=== PATIENT | female | born 1990 | race Caucasian/White ===

== ENCOUNTER 2018-07-18 10:17 | Emergency (ER) | payer BC ==
--- OUTSIDE RECORDS SUMMARY | 2018-07-18 10:37 | XMS REPORT | Continuity of Care Document ---
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 Primary Care Physician Unavailable Payers Type Date Identification Numbers Payment Provider Subscriber Effective: 2018 Policy Number: [id number] /BS Of ALBERT Carolyn Ruiz PayID: [id number] [address] [address] [place] [address] Advance Directives Description No Information Available Problems Date Description Provider Status Onset: 11/25/2015 Allergic rhinitis due to pollen Humphrey Dobbins M.D. Active Onset: 11/25/2015 Mild persistent asthma Humphrey Dobbins M.D. Active Onset: 11/25/2015 Bacterial infection, unspecified Humphrey Dobbins M.D. Active Onset: 01/06/2016 Body mass index 40+ - severely obese Humphrey Dobbins M.D. Active Onset: 01/06/2016 Contact dermatitis Humphrey Dobbins M.D. Active Onset: 03/09/2016 Immunization Humphrey Dobbins M.D. Active Onset: 04/13/2016 Body mass index 30+ - obesity Humphrey Dobbins M.D. Active Onset: 04/13/2016 Allergic rhinitis Humphrey Dobbins M.D. Active Onset: 11/16/2016 Asthma without status asthmaticus Randall JuneD. 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 Hobbies Fishing Hobbies Hiking Hobbies Horseback Riding Hobbies Knitting Hobbies Music Hobbies Reading Hobbies Bowling Hobbies Softball Tobacco Use Start: Unknown Never Smoked Cigarettes Tobacco Use Start: Unknown Never Smoked Cigars Tobacco Use Start: Unknown Never Smoked A Pipe Smoking Status Reviewed: 11/16/16 Never Smoked A Pipe Tobacco Use Start: Unknown Never Used Smokeless Tobacco ETOH Use rarely have a glass of wine Tobacco Use Start: Unknown Patient has never smoked Recreational Drug Use Never Used Drugs Father's Occupation [place] Mother's Occupation teacher Parental Marital Status Parents Parental Involvement Mother and father are very involved Allergies, Adverse Reactions, Alerts Date Description Reaction Status Severity Comments 11/25/2015 Septra Urticaria Active Medications Medication Date Status Form Strength Qnty SIG Indications Ordering Provider Augmentin Active Tablets 875-125mg 20tabs take 1 by J30.1 Ewa 018 mouth Uldrich, twice a 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 Jessica t may fill SCOW DERRICK OPERATOR-C with mylan generic. Topiramate Active Tablets 100mg once a Unknown 000 day Clonazepam Active Tablets 0.5mg as needed Unknown 000 Dispers Sumatriptan Active Tablets 50mg once a Unknown Succinate 000 day Ventolin HFA Active Aerosol 108(90Base 18gm 2 every 4 Ewa 000 ) mcg/Act hours as Uldrich, needed [employer]ERR[employer]PER[employer]-C Mirena (52 MG) Active IUD 20mcg/24HR Unknown 000 Fluoxetine HCL Active Capsules 40mg Once Unknown 000 daily Trazodone HCL Active Tablets 50mg Once Unknown 000 daily at bedtime Caryn Active Tablets 180mg 1 by Unknown Allergy 000 mouth every day Medications Administered in Office Medication Date Status Form Strength Qnty SIG Indications Ordering Provider Injection 06/13/20 Administered Injection Allergy 18 Injection Injection 05/20/20 Administered Injection Allergy 18 Injection Injection 05/06/20 Administered Injection Allergy 18 Injection Injection 04/21/20 Administered Injection Allergy 18 Injection Injection 04/08/20 Administered Injection Allergy 18 Injection Injection 03/23/20 Administered Injection Allergy 18 Injection Injection 03/09/20 Administered Injection Allergy 18 Injection Injection 02/24/20 Administered Injection Allergy 18 Injection Injection 02/10/20 Administered Injection Allergy 18 Injection Injection 01/27/20 Administered Injection Allergy 18 Injection Injection 01/13/20 Administered Injection Allergy 18 Injection Injection 12/30/19 Administered Injection Allergy 18 Injection Injection 12/16/19 Administered Injection Allergy 18 Injection Injection 12/02/19 Administered Injection Allergy 18 Injection Injection 11/18/19 Administered Injection Allergy 18 Injection Injection 10/28/19 Administered Injection Allergy 18 Injection Injection 10/14/19 Administered Injection Allergy 18 Injection Injection 10/01/19 Administered Injection Allergy 18 Injection Injection 09/17/19 Administered Injection Allergy 18 Injection Injection 09/01/19 Administered Injection Allergy 18 Injection Injection 08/18/19 Administered Injection Allergy 18 Injection Injection 08/04/19 Administered Injection Allergy 18 Injection Injection 07/21/19 Administered Injection Allergy 18 Injection Injection 07/07/20 Administered Injection Allergy 17 Injection Injection 06/23/20 Administered Injection Allergy 17 Injection Injection 06/16/20 Administered Injection Allergy 17 Injection Injection 20 Administered Injection Allergy 17 Injection Injection 05/19/20 Administered Injection Allergy 17 Injection Injection 05/12/20 Administered Injection Allergy 17 Injection Injection 05/06/20 Administered Injection Allergy 17 Injection Injection 04/28/20 Administered Injection Allergy 17 Injection Injection 04/21/20 Administered Injection Allergy 17 Injection Injection 04/14/20 Administered Injection Allergy 17 Injection Injection 04/07/20 Administered Injection Allergy 17 Injection Injection 03/31/20 Administered Injection Allergy 17 Injection Injection 03/24/20 Administered Injection Allergy 17 Injection Injection 03/17/20 Administered Injection Allergy 17 Injection Injection 03/10/20 Administered Injection Humphrey Dobbins, 17 M.D. Injection 03/10/20 Administered Injection Allergy 17 Injection Injection 03/03/20 Administered Injection Humphrey Dobbins, 17 M.D. Injection 03/03/20 Administered Injection Allergy 17 Injection Injection 02/25/20 Administered Injection Allergy 17 Injection Injection 02/16/20 Administered Injection Allergy 17 Injection Injection 02/11/20 Administered Injection Allergy 17 Injection Injection 02/04/20 Administered Injection Allergy 17 Injection Injection 01/28/20 Administered Injection Allergy 17 Injection Injection 01/21/20 Administered Injection Allergy 17 Injection Injection 01/14/20 Administered Injection Allergy 17 Injection Injection 01/07/20 Administered Injection Allergy 17 Injection Injection 12/31/19 Administered Injection Allergy 17 Injection Injection 12/24/19 Administered Injection Humphrey Dobbins, 17 M.D. Injection 12/24/19 Administered Injection Allergy 17 Injection Injection 12/17/19 Administered Injection Humphrey Dobbins, 17 M.D. Injection 12/17/19 Administered Injection Allergy 17 Injection Injection 12/10/19 Administered Injection Allergy 17 Injection Injection 0520 Administered Injection Allergy 17 Injection Injection 05 Administered Injection Allergy 17 Injection Injection 05 Administered Injection Allergy 17 Injection Injection 11/12/19 Administered Injection Allergy 17 Injection Injection 20 Administered Injection Allergy 17 Injection Injection 10/27/19 Administered Injection Allergy 17 Injection Injection 10/20/19 Administered Injection Allergy 17 Injection Injection 10/13/19 Administered Injection Allergy 17 Injection Injection 10/08/19 Administered Injection Allergy 17 Injection Injection 09/29/19 Administered Injection Allergy 17 Injection Injection 09/24/19 Administered Injection Allergy 17 Injection Injection 09/14/19 Administered Injection Allergy 17 Injection Injection 09/07/19 Administered Injection Allergy 17 Injection Injection 09/02/19 Administered Injection Allergy 17 Injection Injection 08/26/19 Administered Injection Allergy 17 Injection Injection 08/19/19 Administered Injection Allergy 17 Injection Injection 08/12/19 Administered Injection Allergy 17 Injection Injection 07/29/19 Administered Injection Allergy 17 Injection Injection 07/22/19 Administered Injection Allergy 17 Injection Injection 07/15/20 Administered Injection Allergy 16 Injection Injection 07/10/20 Administered Injection Allergy 16 Injection Injection 07/02/20 Administered Injection Allergy 16 Injection Injection 06/24/20 Administered Injection Allergy 16 Injection Injection 06/17/20 Administered Injection Allergy 16 Injection Injection 06/10/20 Administered Injection Allergy 16 Injection Injection 06/04/20 Administered Injection Allergy 16 Injection Injection 05/28/20 Administered Injection Allergy 16 Injection Injection 05/14/20 Administered Injection Allergy 16 Injection Injection 05/07/20 Administered Injection Allergy 16 Injection Injection 05/01/20 Administered Injection Allergy 16 Injection Injection 04/23/20 Administered Injection Allergy 16 Injection Injection 04/13/20 Administered Injection Allergy 16 Injection Injection 04/08/20 Administered Injection Allergy 16 Injection Injection 04/01/20 Administered Injection Allergy 16 Injection Injection 03/25/20 Administered Injection Allergy 16 Injection Injection 03/16/20 Administered Injection Allergy 16 Injection Injection 01/17/20 Administered Injection Allergy 16 Injection Immunizations CPT Code Status Date Vaccine Lot # [id number] Given Unknown Pneumococcal Vaccine 03452 Given Unknown Influenza Vaccine 11443 Given Unknown Influenza Vaccine Vital Signs Date Vital Result Comment 07/04/2018 1:19pm Height 63 inches 5'3" Weight 228.00 lb Weight 103.421 kg Respiratory Rate 18 /min Heart Rate 90 /min Body Temperature 97.8 F O2 % BldC Oximetry 98 % BP Systolic 112 mmHg BP Diastolic 64 mmHg Asthma Control Test 7 BMI (Body Mass Index) 40.4 kg/m2 06/29/2018 2:53pm Height 63 inches 5'3" Weight 228.00 lb Weight 103.421 kg Respiratory Rate 20 /min Heart Rate 84 /min Body Temperature 97.6 F O2 % BldC Oximetry 98 % BP Systolic 105 mmHg BP Diastolic 52 mmHg Asthma Control Test 14 BMI (Body Mass Index) 40.4 kg/m2 04/21/2018 3:33pm Height 63 inches 5'3" Weight 225.00 lb Weight 102.060 kg Respiratory Rate 20 /min Heart Rate 73 /min O2 % BldC Oximetry 98 % BP Systolic 105 mmHg BP Diastolic 61 mmHg Asthma Control Test 17 BMI (Body Mass Index) 39.9 kg/m2 10/18/2017 10:28am Height 63 inches 5'3" Weight 228.00 lb Weight 103.421 kg Respiratory Rate 16 /min Heart Rate 82 /min O2 % BldC Oximetry 98 % BP Systolic 95 mmHg BP Diastolic 55 mmHg Asthma Control Test 20 BMI (Body Mass Index) 40.4 kg/m2 04/02/2017 4:22pm Height 63 inches 5'3" Weight 234.00 lb Weight 106.142 kg Respiratory Rate 16 /min Heart Rate 74 /min O2 % BldC Oximetry 98 % BP Systolic 93 mmHg BP Diastolic 54 mmHg Asthma Control Test 19 BMI (Body Mass Index) 41.4 kg/m2 01/04/2017 5:03pm Height 63 inches 5'3" Weight 228.00 lb Weight 103.421 kg Respiratory Rate 20 /min Heart Rate 70 /min O2 % BldC Oximetry 99 % BP Systolic 99 mmHg BP Diastolic 50 mmHg Asthma Control Test 23 BMI (Body Mass Index) 40.4 kg/m2 11/16/2016 11:17am Height 63 inches 5'3" Weight 228.00 lb Weight 103.421 kg Respiratory Rate 16 /min Heart Rate 92 /min O2 % BldC Oximetry 98 % BP Systolic 105 mmHg BP Diastolic 56 mmHg Asthma Control Test 20 BMI (Body Mass Index) 40.4 kg/m2 04/13/2016 11:04am Height 63 inches 5'3" Weight 220.00 lb per patient Weight 99.792 kg Respiratory Rate 20 /min Heart Rate 71 /min O2 % BldC Oximetry 98 % BP Systolic 100 mmHg BP Diastolic 57 mmHg Asthma Control Test 21 BMI (Body Mass Index) 39.0 kg/m2 03/09/2016 5:17pm Height 63 inches 5'3" Weight 230.00 lb Patient stated Weight 104.328 kg Respiratory Rate 20 /min Heart Rate 72 /min O2 % BldC Oximetry 98 % BP Systolic 85 mmHg BP Diastolic 43 mmHg Asthma Control Test 14 BMI (Body Mass Index) 40.7 kg/m2 01/23/2016 9:09am Height 63 inches 5'3" Weight 232.00 lb Weight 105.235 kg Respiratory Rate 16 /min Heart Rate 75 /min O2 % BldC Oximetry 98 % Asthma Control Test 11 BMI (Body Mass Index) 41.1 kg/m2 01/06/2016 11:32am Height 63 inches 5'3" Weight 231.00 lb Weight 104.782 kg Respiratory Rate 18 /min Heart Rate 90 /min O2 % BldC Oximetry 98 % BP Systolic 106 mmHg BP Diastolic 60 mmHg Asthma Control Test 11 BMI (Body Mass Index) 40.9 kg/m2 11/25/2015 9:10am Height 63 inches 5'3" Weight 232.00 lb Weight 105.235 kg Respiratory Rate 16 /min Heart Rate 86 /min O2 % BldC Oximetry 98 % BP Systolic 105 mmHg BP Diastolic 61 mmHg BMI (Body Mass Index) 41.1 kg/m2 Results Test Date Facility Test Result H/L Range Note S.Pneumoniae 12/27/2015 [facility] S. pneumoniae 7.9 g/mL N >=2.3 Igg AB [address] Type 1 [place] [address] [phone] S. pneumoniae Type 2 IgG AB 1.2 g/mL N >=1.0 S. pneumoniae Type 3 IgG AB 1.3 g/mL N >=1.8 S. pneumoniae Type 4 IgG AB 1.3 g/mL N >=0.6 S. pneumoniae Type 5 IgG AB 125.8 g/mL N >=10.7 S. pneumoniae Type 8 IgG AB 1.0 g/mL N >=2.9 S. pneumoniae Type 9N IgG AB 1.1 g/mL N >=9.2 S. pneumoniae Type 12F IgG AB <0.1 g/mL N >=0.6 S. pneumoniae Type 14 IgG AB 32.9 g/mL N >=7.0 S. pneumoniae Type 17F IgG AB 1.7 g/mL N >=7.8 S. pneumoniae Type 19F IgG AB 11.7 g/mL N >=15.0 S. pneumoniae Type 20 IgG AB 0.4 g/mL N >=1.3 S. pneumoniae Type 22F IgG AB 5.2 g/mL N >=7.2 S. pneumoniae Type 23F IgG AB 12.9 g/mL N >=8.0 S. pneumoniae Type 6B IgG AB 97.3 g/mL N >=4.7 S. pneumoniae Type 10A IgG AB 1.7 g/mL N >=2.9 S. pneumoniae Type 11A IgG AB 1.5 g/mL N >=2.4 S. pneumoniae Type 7F IgG AB 6.1 g/mL N >=3.2 S. pneumoniae Type 15B IgG AB 1.3 g/mL N >=3.3 S. pneumoniae Type 18C IgG AB 5.6 g/mL N >=3.3 S. pneumoniae Type 19A IgG AB 448.6 g/mL N >=17.1 S. pneumoniae Type 9V IgG AB 4.2 g/mL N >=2.6 S. pneumoniae Type 33F IgG AB 1.8 g/mL N >=1.7 1 Immunoglobulins 11/25/2015 [facility] Immunoglobulin G 1390 N 767 - 2 Serum Quant [address] mg/dL 1590 [place] [address] [phone] Immunoglobulin M 115 mg/dL N 37 - 286 Immunoglobulin A 137 mg/dL N 61 - 356 S.Pneumoniae Igg 11/25/2015 [facility] S. pneumoniae 1.0 g/mL N >=2.3 AB [address] Type [place] [address] [phone] S. pneumoniae Type 2 IgG AB 0.9 g/mL N >=1.0 S. pneumoniae Type 3 IgG AB 0.5 g/mL N >=1.8 S. pneumoniae Type 4 IgG AB 0.2 g/mL N >=0.6 S. pneumoniae Type 5 IgG AB 2.3 g/mL N >=10.7 S. pneumoniae Type 8 IgG AB 0.5 g/mL N >=2.9 S. pneumoniae Type 9N IgG AB 0.6 g/mL N >=9.2 S. pneumoniae Type 12F IgG AB <0.1 g/mL N >=0.6 S. pneumoniae Type 14 IgG AB <0.7 g/mL N >=7.0 S. pneumoniae Type 17F IgG AB <0.9 g/mL N >=7.8 S. pneumoniae Type 19F IgG AB 1.8 g/mL N >=15.0 S. pneumoniae Type 20 IgG AB 0.3 g/mL N >=1.3 S. pneumoniae Type 22F IgG AB 3.1 g/mL N >=7.2 S. pneumoniae Type 23F IgG AB 3.0 g/mL N >=8.0 S. pneumoniae Type 6B IgG AB 1.2 g/mL N >=4.7 S. pneumoniae Type 10A IgG AB 1.1 g/mL N >=2.9 S. pneumoniae Type 11A IgG AB 1.0 g/mL N >=2.4 S. pneumoniae Type 7F IgG AB 1.7 g/mL N >=3.2 S. pneumoniae Type 15B IgG AB 0.8 g/mL N >=3.3 S. pneumoniae Type 18C IgG AB 0.3 g/mL N >=3.3 S. pneumoniae Type 19A IgG AB 40.7 g/mL N >=17.1 S. pneumoniae Type 9V IgG AB 1.9 g/mL N >=2.6 S. pneumoniae Type 33F IgG AB 1.5 g/mL N >=1.7 3 CBC Auto Diff 11/25/2015 [facility] White Blood 9.8 10^3/uL N 3.5-10.[address] Count [place], [place] [id number] [phone] Red Blood Count 4.40 10^6/uL N 4.0-5.4 Hemoglobin 12.5 g/dL N 12.0-16.0 Hematocrit 39 % N 35-47 Mean Corpuscular Volume 88 fL N 80-97 Mean Corpuscular Hemoglobin 28 pg N 27-31 Mean Corpuscular HGB Conc 32 g/dL N 31-36 Red Cell Distribution Width 15 % N 10.5-15 Platelet Count 241 10^3/uL N 150-450 Mean Platelet Volume 9 um3 N 7.4-10.4 Abs Neutrophils 6.6 10^3/uL N 1.5-7.7 Abs Lymphocytes 2.7 10^3/uL N 1.0-4.8 Abs Monocytes 0.4 10^3/uL N 0-0.8 Abs Eosinophils 0.1 10^3/uL N 0-0.6 Abs Basophils 0.1 10^3/uL N 0-0.2 Abs Nucleated RBC 0.02 10^3/uL N Granulocyte % 67.2 % N 38-83 Lymphocyte % 27.4 % N 25-47 Monocyte % 3.6 % N 1-9 Eosinophil % 1.3 % N 0-6 Basophil % 0.5 % N 0-2 Nucleated Red Blood Cells % 0.2 N 1 Either of the two following conditions would be consistent with a normal response to Streptococcus pneumoniae vaccination: Antibody concentrations greater than or equal to the reference value for at least 50% of serotypes in either a pre- or post-vaccination sample. Antibody concentrations increased by 2-fold or greater for at least 50% of serotypes when comparing the pre- to the post-vaccination results. Optimal cut-offs (reference values) were derived by measuring serotype-specific IgG antibody levels in an adult cohort of 100 healthy individuals (previously unvaccinated) before and after pneumococcal vaccination and identifying the antibody level for each serotype that included the largest number of individuals with a negative response (below cut-off) pre-vaccination and a positive response (above cut-off) post-vaccination. ADDITIONAL INFORMATION All 23 serotypes assessed by this assay are included in the Pneumovax 23 vaccine. IgG antibody concentrations following Pneumovax 23 administration are a reflection of an individual's humoral immune response to polysaccharide antigens. Serotypes 1, 3, 4, 5, 6A (6), 14, 19F (19), 23F (23), 6B (26), 7F (51), 18C (56), 19A (57) and 9V (68) are included in the Prevnar-13 conjugate vaccine. Antibody concentrations following Prevnar-13 administration are a reflection of an individual's response to protein-conjugated antigens. Serotypes 2, 8, 9N (9), 12F (12), 17F (17), 20, 22F (22), 10A (34), 11A (43), 15B (54) and 33F (70) are present only in the Pneumovax 23 vaccine and not in Prevnar-13. Responses to these 11 serotypes are a reflection of an individual's response to polysaccharide antigens. Serotype 6A is only present in Prevnar-13. Test Performed by: [place] [address] Packaging Line Operator: Ubaldo Leon II, M.D., Ph.D. 2 Test Performed by: [place] [address] Packaging Line Operator: Ubaldo Leon II, M.D., Ph.D. 3 Either of the two following conditions would be consistent with a normal response to Streptococcus pneumoniae vaccination: Antibody concentrations greater than or equal to the reference value for at least 50% of serotypes in either a pre- or post-vaccination sample. Antibody concentrations increased by 2-fold or greater for at least 50% of serotypes when comparing the pre- to the post-vaccination results. Optimal cut-offs (reference values) were derived by measuring serotype-specific IgG antibody levels in an adult cohort of 100 healthy individuals (previously unvaccinated) before and after pneumococcal vaccination and identifying the antibody level for each serotype that included the largest number of individuals with a negative response (below cut-off) pre-vaccination and a positive response (above cut-off) post-vaccination. ADDITIONAL INFORMATION All 23 serotypes assessed by this assay are included in the Pneumovax 23 vaccine. IgG antibody concentrations following Pneumovax 23 administration are a reflection of an individual's humoral immune response to polysaccharide antigens. Serotypes 1, 3, 4, 5, 6A (6), 14, 19F (19), 23F (23), 6B (26), 7F (51), 18C (56), 19A (57) and 9V (68) are included in the Prevnar-13 conjugate vaccine. Antibody concentrations following Prevnar-13 administration are a reflection of an individual's response to protein-conjugated antigens. Serotypes 2, 8, 9N (9), 12F (12), 17F (17), 20, 22F (22), 10A (34), 11A (43), 15B (54) and 33F (70) are present only in the Pneumovax 23 vaccine and not in Prevnar-13. Responses to these 11 serotypes are a reflection of an individual's response to polysaccharide antigens. Serotype 6A is only present in Prevnar-13. Test Performed by: [address] [address] Packaging Line Operator: Ubaldo Leon II, M.D., Ph.D. Procedures Date Code Description Status 07/04/2018 88412 Ippb Completed 06/13/2018 98468 Injection Completed 05/20/2018 54870 Injection Completed 05/06/2018 32210 Injection Completed 04/21/2018 48209 Injection Completed 04/21/2018 29766 Pre PFT Completed 04/08/2018 85508 Injection Completed 03/23/2018 05332 Injection Completed 03/09/2018 24277 Injection Completed 02/23/2018 28667 Extract 1-10 Completed 02/23/2018 73497 Injection Completed 02/09/2018 74994 Injection Completed 01/26/2018 06289 Injection Completed 01/12/2018 78523 Injection Completed 12/29/2017 90098 Injection Completed 12/15/2017 28774 Injection Completed 12/01/2017 26592 Injection Completed 11/17/2017 83763 Injection Completed 10/27/2017 00635 Injection Completed 10/18/2017 03835 Pre PFT Completed 10/13/2017 09703 Injection Completed 09/30/2017 57167 Extract 1-10 Completed 09/30/2017 13493 Injection Completed 09/16/2017 97419 Injection Completed 09/01/2017 29909 Injection Completed 08/18/2017 11080 Injection Completed 08/04/2017 35279 Injection Completed 07/21/2017 55593 Injection Completed 07/07/2017 22510 Injection Completed 06/23/2017 52662 Injection Completed 06/16/2017 82692 Injection Completed 06/02/2017 67986 Injection Completed 05/19/2017 75763 Extract 1-10 Completed 05/19/2017 32583 Injection Completed 05/12/2017 14485 Injection Completed 05/06/2017 68416 Injection Completed 04/28/2017 20684 Injection Completed 04/21/2017 49842 Injection Completed 04/14/2017 87391 Injection Completed 04/07/2017 35984 Injection Completed 04/02/2017 63097 Pre PFT Completed 03/31/2017 62655 Injection Completed 03/24/2017 69293 Injection Completed 03/17/2017 36878 Injection Completed 03/10/2017 94624 Extract 1-10 Completed 03/10/2017 79519 Injection Completed 03/10/2017 84870 Injection Completed 03/03/2017 44163 Injection Completed 03/03/2017 91324 Injection Completed 02/24/2017 50425 Injection Completed 02/15/2017 25118 Injection Completed 02/10/2017 66939 Injection Completed 02/03/2017 76424 Injection Completed 01/27/2017 14837 Injection Completed 01/20/2017 66820 Injection Completed 01/13/2017 65370 Injection Completed 01/06/2017 86463 Injection Completed 01/04/2017 91925 Pre PFT Completed 12/30/2016 04703 Extract 1-10 Completed 12/30/2016 81508 Injection Completed 12/23/2016 72824 Injection Completed 12/23/2016 92437 Injection Completed 12/16/2016 01787 Injection Completed 12/16/2016 16663 Injection Completed 12/09/2016 04603 Injection Completed 12/02/2016 37386 Injection Completed 11/25/2016 08626 Injection Completed 11/16/2016 63502 Injection Completed 11/16/2016 99533 Pre PFT Completed 11/11/2016 97354 Injection Completed 11/04/2016 43138 Injection Completed 10/26/2016 86827 Injection Completed 10/19/2016 00136 Extract 1-10 Completed 10/19/2016 62453 Extract 1-10 Completed 10/19/2016 29438 Injection Completed 10/12/2016 63618 Injection Completed 10/07/2016 32675 Injection Completed 09/28/2016 39963 Injection Completed 09/23/2016 78205 Injection Completed 09/14/2016 10339 Injection Completed 09/07/2016 61634 Injection Completed 09/02/2016 01957 Injection Completed 08/26/2016 62199 Injection Completed 08/19/2016 82740 Injection Completed 08/12/2016 55493 Extract 1-10 Completed 08/12/2016 68589 Injection Completed 07/29/2016 63387 Injection Completed 07/22/2016 83838 Injection Completed 07/15/2016 26925 Injection Completed 07/10/2016 30399 Injection Completed 07/02/2016 57291 Injection Completed 06/24/2016 25989 Injection Completed 06/17/2016 40290 Injection Completed 06/10/2016 25485 Injection Completed 06/04/2016 17336 Injection Completed 05/28/2016 35643 Extract 1-10 Completed 05/28/2016 32568 Injection Completed 05/14/2016 81685 Injection Completed 05/07/2016 22097 Injection Completed 05/01/2016 35257 Injection Completed 04/23/2016 65700 Injection Completed 04/13/2016 99270 Injection Completed 04/13/2016 45717 Pre PFT Completed 04/08/2016 56917 Injection Completed 04/01/2016 45975 Injection Completed 03/25/2016 61993 Injection Completed 03/16/2016 86588 Injection Completed 01/17/2016 78038 Injection Completed 01/13/2016 60074 Extract 1-10 Completed 11/25/2015 42551 Skin Test Scratch # Of Units ____ Completed 11/25/2015 06358 Pulmonary Function Test Completed Encounters Type Date Location Provider Dx Diagnosis Office Visit 07/04/2018 Danay Lopez J30.1 Allergic rhinitis due 1:20p [employer] to pollen J30.81 Allergic rhinitis due to animal (cat) (dog) hair and dander J30.2 Other seasonal allergic rhinitis J30.89 Other allergic rhinitis J45.21 Mild intermittent asthma with (acute) exacerbation Office Visit 06/29/2018 2:40p [facility] Ewa Lopez J30.1 Allergic [employer] rhinitis due to pollen J30.81 Allergic rhinitis due to animal (cat) (dog) hair and dander J30.2 Other seasonal allergic rhinitis J30.89 Other allergic rhinitis J45.30 Mild persistent asthma, uncomplicated Office Visit 04/21/2018 3:40p Tyson Rick30.81 Allergic rhinitis [employer] due to animal (cat) (dog) hair and dander J30.89 Other allergic rhinitis J30.1 Allergic rhinitis due to pollen J45.30 Mild persistent asthma, uncomplicated J30.2 Other seasonal allergic rhinitis J01.90 Acute sinusitis, unspecified Office Visit 10/18/2017 10:20a Danay Lopez Z23 Encounter for [employer] immunization J30.1 Allergic rhinitis due to pollen J30.2 Other seasonal allergic rhinitis J30.89 Other allergic rhinitis J45.30 Mild persistent asthma, uncomplicated Office Visit 04/02/2017 4:20p Danay Dobbins M.D. J30.1 Allergic rhinitis due to pollen J45.30 Mild persistent asthma, uncomplicated Office Visit 01/04/2017 5:00p Danay Dobbins M.D. J30.1 Allergic rhinitis due to pollen J45.30 Mild persistent asthma, uncomplicated Z23 Encounter for immunization Z68.41 Body mass index (BMI) 40.0-44.9, adult Office Visit 11/16/2016 11:20a Danay Dobbins M.D. J45.998 Other asthma J30.2 Other seasonal allergic rhinitis J45.998 Other asthma Z23 Encounter for immunization Z68.41 Body mass index (BMI) 40.0-44.9, adult Office Visit 04/13/2016 11:00a Danay Dobbins M.D. J30.2 Other seasonal allergic rhinitis J45.30 Mild persistent asthma, uncomplicated Z68.39 Body mass index (BMI) 39.0-39.9, adult Office Visit 03/09/2016 5:20p Danay Dobbins M.D. J30.1 Allergic rhinitis due to pollen J45.30 Mild persistent asthma, uncomplicated Z23 Encounter for immunization Z68.41 Body mass index (BMI) 40.0-44.9, adult Office Visit 01/23/2016 9:00a [place] Mercedes Chan, Z68.41 Body mass index (BMI) RPA-C 40.0-44.9, adult Z23 Encounter for immunization T78.09xD Anaphylactic reaction due to oth food products, subs encntr J30.1 Allergic rhinitis due to pollen J30.2 Other seasonal allergic rhinitis J30.81 Allergic rhinitis due to animal (cat) (dog) hair and dander J30.89 Other allergic rhinitis J45.30 Mild persistent asthma, uncomplicated Office Visit 01/06/2016 11:20a Danay Dobbins M.D. J30.1 Allergic rhinitis due to pollen J45.30 Mild persistent asthma, uncomplicated L23.9 Allergic contact dermatitis, unspecified cause Z68.41 Body mass index (BMI) 40.0-44.9, adult Office Visit 11/25/2015 9:00a Danay Dobbins M.D. J30.1 Allergic rhinitis due to pollen J45.30 Mild persistent asthma, uncomplicated A49.9 Bacterial infection, unspecified Plan of Treatment Future Appointment(s):07/08/2018 3:00 pm - Allergy Injection at [id number] 3:40 pm - [facility] at St[facility]w4207/04/2018 - MARLIN Judge-CJ30.1 Allergic rhinitis due to cwhgkqL14.81 Allergic rhinitis due to animal (cat) (dog) hair and mnuzsnK06.2 Other seasonal allergic kntmnzgxD03.89 Other allergic oamoikmcJ43.21 Mild intermittent asthma with (acute) exacerbationNew Medication:Augmentin 875-125 mgRecommendations:Continue all medications as prescribed.Refrain from wearing perfumes/scented colognes while visitingour office. IBBP now Start the Augmentin today Give 30 mg of steroids now(Total of 70mg Prednisone) Start the Spiriva 1 puff daily Continue the Flonase sensimist 1 spray each nostril daily Continue the Breo 1 puff daily Continue the montelukast 1 daily Continue the Caryn 1 daily Continue the Ventolin 2 puffs every 4 hours as needed for cough, chest congestion, shortness of breath or wheezing. Call if using >2 x a week Hold IT for this week
[2018-07-18 10:38] VITALS: BP 104/66
--- OUTSIDE RECORDS SUMMARY | 2018-07-18 10:38 | XMS REPORT | Continuity of Care Document ---
:1990 External Reference #:[id number] Author Name MARLIN Judge-[facility] Address [address] [place] [address] Care Team Providers Name Role Phone More Feng FNP Care Team Information Senior Quality Assurance Analyst Unavailable Steve Neri M.D. Primary Care Physician Unavailable Payers Type Date Identification Numbers Payment Provider Subscriber Effective: 2018 Policy Number: [id number] /BS Of ALBERT Carolyn Ruiz PayID: [id number] [address] [address] [place] [address] Advance Directives Description No Information Available Problems [...] Form Strength Qnty SIG Indications Ordering Provider Zithromax 06/29/ Active Tablets 250mg 1pack use as J30.1 Ewa Z-Jaleel 2018 directed Ulsushil, [employer] Prednisone 06/29/ Active Tablets 10mg 28tabs 40mg for4 J30.1 Ewa 2017 days, 30 [place], mg for 4 [employer] days, 20 mg for 4 days, then 10 mg for 4 days, then 5 mg for two days Breo Ellipta 11/16/ Active Aerosol 200-25mcg/ 60unit Inhale 1 J45.998 Ewa 2016 Inh s puff By Uldrich, Mouth Once [employer] Daily Montelukast 03/09/ Active Tablets 10mg 30tabs take 1 J45.30 Ewa Sodium 2016 tablet by Uldrich, mouth [employer] every day Epipen 2-Jaleel 01/20/ Active Solution 0.3mg/0.3M 4units use as Ewa 2016 Auto-Injec L directed. saul Lopez may fill [employer] with mylan generic. Topiramate / Active Tablets 100mg once a day Unknown 0000 Clonazepam / Active Tablets 0.5mg as needed Unknown 0000 Dispers Sumatriptan / Active Tablets 50mg once a day Unknown Succinate 0000 Ventolin HFA / Active Aerosol 108(90Base 18gm 2 every 4 Ewa 0000 ) mcg/Act hours as Uldrich, needed [employer] Mirena (52 MG) / Active IUD 20mcg/24HR Unknown 0000 Fluoxetine HCL / Active Capsules 40mg Once daily Unknown 0000 Trazodone HCL / Active Tablets 50mg Once daily Unknown 0000 at bedtime Caryn / Active Tablets 180mg 1 by mouth Unknown Allergy 0000 every day Medications Administered in Office Medication [...] 06/16/20 Administered Injection Allergy 17 Injection Injection 06/02/20 Administered Injection Allergy 17 Injection Injection 05/19/20 [...] 12/10/19 Administered Injection Allergy 17 Injection Injection 12/03/19 Administered Injection Allergy 17 Injection Injection 11/26/19 Administered Injection Allergy 17 Injection Injection 05 Administered Injection Allergy 17 Injection Injection 11/12/19 Administered Injection Allergy 17 Injection Injection 11/05/19 Administered Injection Allergy 17 Injection Injection 10/27/19 [...] CPT Code Status Date Vaccine Lot # 68664 Given Unknown Pneumococcal Vaccine 55238 Given Unknown Influenza Vaccine 77618 Given Unknown Influenza Vaccine Vital Signs Date Vital Result Comment 06/29/2018 2:53pm Height 63 inches 5'3" Weight [...] Test Result H/L Range Note S.Pneumoniae 12/27/2015 [facility] S. pneumoniae 7.9 g/mL N >=2.3 Igg AB [address] Type 1 IgG AB Serotyp [place] [id number] [phone] S. pneumoniae Type 2 IgG AB 1.2 [...] 1.8 g/mL N >=1.7 1 Immunoglobulins 11/25/2015 [facility] Immunoglobulin G 1390 N 767 - 2 Serum Quant [address] mg/dL [address] [place] [address] [phone] Immunoglobulin M 115 mg/dL N 37 - 286 Immunoglobulin A 137 mg/dL N 61 - 356 S.Pneumoniae Igg 11/25/2015 [facility] S. pneumoniae 1.0 g/mL N >=2.3 AB [address] Type 1 [place] [address] [phone] S. pneumoniae Type 2 IgG AB 0.9 [...] N >=1.7 3 CBC Auto Diff 11/25/2015 [facility] White Blood 9.8 10^3/uL N 3.5-10.[address] [place] [address] [phone] Red Blood Count 4.40 10^6/uL N 4.0-5.4 [...] only present in Prevnar-13. Test Performed by: [place] [address] Hairspring Cutter: Ubaldo Leon II, M.D., Ph.D. 2 Test Performed by: [place] [address] Hairspring Cutter: Ubaldo Leon II, M.D., Ph.D. 3 Either [...] only present in Prevnar-13. Test Performed by: [place] [address] Hairspring Cutter: Ubaldo Leon II, M.D., Ph.D. Procedures Date Code Description Status 06/13/2018 71137 Injection Completed 05/20/2018 77986 Injection Completed 05/06/2018 81814 Injection Completed 04/21/2018 00873 Injection Completed 04/21/2018 79985 Pre PFT Completed 04/08/2018 59949 Injection Completed 03/23/2018 89154 Injection Completed 03/09/2018 34837 Injection Completed 02/23/2018 40054 Extract 1-10 Completed 02/23/2018 23100 Injection Completed 02/09/2018 60869 Injection Completed 01/26/2018 36386 Injection Completed 01/12/2018 93902 Injection Completed 12/29/2017 41041 Injection Completed 12/15/2017 12641 Injection Completed 12/01/2017 68297 Injection Completed 11/17/2017 33715 Injection Completed 10/27/2017 05318 Injection Completed 10/18/2017 63576 Pre PFT Completed 10/13/2017 90000 Injection Completed 09/30/2017 57411 Extract 1-10 Completed 09/30/2017 23384 Injection Completed 09/16/2017 47789 Injection Completed 09/01/2017 53113 Injection Completed 08/18/2017 17085 Injection Completed 08/04/2017 66843 Injection Completed 07/21/2017 10410 Injection Completed 07/07/2017 52011 Injection Completed 06/23/2017 37199 Injection Completed 06/16/2017 84395 Injection Completed 06/02/2017 19041 Injection Completed 05/19/2017 21417 Extract 1-10 Completed 05/19/2017 31383 Injection Completed 05/12/2017 78475 Injection Completed 05/06/2017 84115 Injection Completed 04/28/2017 30145 Injection Completed 04/21/2017 24858 Injection Completed 04/14/2017 20139 Injection Completed 04/07/2017 08594 Injection Completed 04/02/2017 81327 Pre PFT Completed 03/31/2017 90764 Injection Completed 03/24/2017 50821 Injection Completed 03/17/2017 31185 Injection Completed 03/10/2017 19578 Extract 1-10 Completed 03/10/2017 68275 Injection Completed 03/10/2017 54677 Injection Completed 03/03/2017 67497 Injection Completed 03/03/2017 60975 Injection Completed 02/24/2017 48246 Injection Completed 02/15/2017 48110 Injection Completed 02/10/2017 99840 Injection Completed 02/03/2017 13343 Injection Completed 01/27/2017 75207 Injection Completed 01/20/2017 34311 Injection Completed 01/13/2017 20940 Injection Completed 01/06/2017 88961 Injection Completed 01/04/2017 90002 Pre PFT Completed 12/30/2016 73623 Extract 1-10 Completed 12/30/2016 86554 Injection Completed 12/23/2016 56669 Injection Completed 12/23/2016 05280 Injection Completed 12/16/2016 12367 Injection Completed 12/16/2016 28872 Injection Completed 12/09/2016 89859 Injection Completed 12/02/2016 51317 Injection Completed 11/25/2016 65196 Injection Completed 11/16/2016 17386 Injection Completed 11/16/2016 59283 Pre PFT Completed 11/11/2016 34009 Injection Completed 11/04/2016 40278 Injection Completed 10/26/2016 98722 Injection Completed 10/19/2016 21878 Extract 1-10 Completed 10/19/2016 44438 Extract 1-10 Completed 10/19/2016 64027 Injection Completed 10/12/2016 38516 Injection Completed 10/07/2016 18453 Injection Completed 09/28/2016 12621 Injection Completed 09/23/2016 27897 Injection Completed 09/14/2016 38415 Injection Completed 09/07/2016 16050 Injection Completed 09/02/2016 49653 Injection Completed 08/26/2016 84677 Injection Completed 08/19/2016 49185 Injection Completed 08/12/2016 53452 Extract 1-10 Completed 08/12/2016 69239 Injection Completed 07/29/2016 88564 Injection Completed 07/22/2016 56150 Injection Completed 07/15/2016 77118 Injection Completed 07/10/2016 66203 Injection Completed 07/02/2016 85709 Injection Completed 06/24/2016 36166 Injection Completed 06/17/2016 96930 Injection Completed 06/10/2016 23042 Injection Completed 06/04/2016 80439 Injection Completed 05/28/2016 76826 Extract 1-10 Completed 05/28/2016 43162 Injection Completed 05/14/2016 92442 Injection Completed 05/07/2016 34773 Injection Completed 05/01/2016 31780 Injection Completed 04/23/2016 77797 Injection Completed 04/13/2016 12154 Injection Completed 04/13/2016 48556 Pre PFT Completed 04/08/2016 06014 Injection Completed 04/01/2016 11487 Injection Completed 03/25/2016 55713 Injection Completed 03/16/2016 25817 Injection Completed 01/17/2016 66419 Injection Completed 01/13/2016 55153 Extract 1-10 Completed 11/25/2015 02558 Skin Test Scratch # Of Units ____ Completed 11/25/2015 05848 Pulmonary Function Test Completed Encounters Type Date Location Provider Dx Diagnosis Office Visit 04/21/2018 Danay Lopez J30.81 Allergic rhinitis 3:40p [employer] due to animal (cat) (dog) hair and dander J30.89 Other allergic rhinitis J30.1 Allergic rhinitis due to pollen J45.30 Mild persistent asthma, uncomplicated J30.2 Other seasonal allergic rhinitis J01.90 Acute sinusitis, unspecified Office Visit 10/18/2017 10:20a Danay Lpoez, Z23 Encounter for [employer] immunization J30.1 Allergic rhinitis due to pollen [...] (BMI) 40.0-44.9, adult Office Visit 01/23/2016 9:00a Danay Chan, Z68.41 Body mass index (BMI) RPA-C [...] Appointment(s):07/08/2018 3:00 pm - Allergy Injection at [id number] 3:40 pm - [facility] at Uolcqx4006/29/2018 - MARLIN Judge-CJ30.1 Allergic rhinitis due to emzhdhU16.81 Allergic rhinitis due to animal (cat) (dog) hair and mlufzaC83.2 Other seasonal allergic kqavzpeuF91.89 Other allergic qmcqxcfmM81.30 Mild persistent asthma, uncomplicatedNew Medication:Zithromax Z-Jaleel 250 mgPrednisone 10 mgRecommendations:Continue all medications as prescribed.Refrain from wearing perfumes/scented colognes while visitingour office. Continue the Flonase sensimist 1 spray each nostril daily Continue the Breo 1 puff daily Continue the montelukast 1 daily Continue the Caryn 1 daily Continue the Ventolin 2 puffs every 4 hours as needed for cough, chest congestion, shortness of breath or wheezing. Call if using >2 x a week.PFT done today. Pulmonary Function Studies are done by exhaling (blowing ) into a machineto detect an asthmatic condition or other lung problem. Results reviewed and is normal. Hold IT for this week
--- NOTE | 2018-07-18 11:24 | UC ---
Complaint Female HPI - HPI Summary HPI Summary: 2 DAYS OF LOWER ABDOMINAL/VAGINAL PRESSURE AND DISCOMFORT. FEELS CONSTANT BURNING/IRRITATION. DENIES ANY VAGINAL DISCHARGE. NO DYSURIA, FREQUENCY OR URGENCY. NO FEVER, NAUSEA/VOMITING. IS SEXUALLY ACTIVE WITH 1 MALE PARTNER FOR THE PAST 6 YEARS. HAS RECENTLY BEEN TREATED WITH 2 ROUNDS OF ANTIBIOTICS FOR AN UPPER RESPIRATORY INFECTION. WAS INITIALLY ON AZITHROMYCIN AND 2 DAYS AGO COMPLETED A COURSE OF AMOXICILLIN. - History Of Current Complaint Chief Complaint: UCGU Stated Complaint: URINARY COMPLAINT Time Seen by Provider: 07/18/18 10:53 Hx Obtained From: Patient Hx Last Menstrual Period: iud Onset/Duration: Gradual Onset, Lasting Days, Still Present Timing: Constant Severity Initially: Moderate Severity Currently: Moderate Pain Intensity: 5 Pain Scale Used: 0-10 Numeric Character: Burning Aggravating Factor(s): Nothing Alleviating Factor(s): Nothing Associated Signs And Symptoms: Negative: Fever, Back Pain, Vaginal Bleeding/ Discharge, Vaginal Discharge, Nausea, Vomiting(# Of Episodes =) - Allergies/Home Medications Allergies/Adverse Reactions: Allergies Allergy/AdvReac Type Severity Reaction Status Date / Time Sulfa (Sulfonamide Allergy Hives Verified 07/18/18 10:39 Antibiotics) Watermelon Allergy Rash And Uncoded 05/19/16 10:24 Itching PMH/Surg Hx/FS Hx/Imm Hx Respiratory History: Asthma - Surgical History Surgical History: Yes Surgery Procedure, Year, and Place: implanted back stimulator,. cholecystectomy , appy - Family History Known Family History: Positive: Hypertension - Social History Alcohol Use: Rare Substance Use Type: None Smoking Status (MU): Never Smoked Tobacco Have You Smoked in the Last Year: No Household Exposure Type: Cigarettes - Immunization History Most Recent Influenza Vaccination: 2014 Most Recent Tetanus Shot: up to date Most Recent Pneumonia Vaccination: never Review of Systems All Other Systems Reviewed And Are Negative: Yes Constitutional: Positive: Negative Respiratory: Positive: Negative Cardiovascular: Positive: Negative Gastrointestinal: Positive: Abdominal Pain Genitourinary: Positive: Vaginal/Penile Burning. Negative: Vaginal/Penile Discharge Physical Exam Triage Information Reviewed: Yes Appearance: Well-Appearing, No Pain Distress, Well-Nourished Vital Signs: Initial Vital Signs Temp 97.4 F 07/18/18 10:35 Pulse 79 07/18/18 10:35 Resp 17 07/18/18 10:35 BP 104/66 07/18/18 10:35 Pulse Ox 100 07/18/18 10:35 Laboratory Tests 07/18/18 10:51 POC Urine Color Yellow POC Urine Clarity Clear POC Urine pH 5.0 POC Ur Specif Botkins >= 1.030 POC Urine Protein Negative POC Ur Glucose (UA) Negative POC Urine Ketones Negative POC Urine Blood Trace-lysed A POC Urine Nitrite Negative POC Urine Bilirubin Negative POC Urine Urobilinogen 0.2 POC U Leukocyte Esteras 1+ A Vital Signs Reviewed: Yes Eyes: Positive: Conjunctiva Clear ENT: Positive: Hearing grossly normal Neck: Positive: Supple Respiratory: Positive: No respiratory distress, No accessory muscle use Cardiovascular: Positive: Pulses Normal Abdomen Description: Positive: Soft. Negative: CVA Tenderness (R), CVA Tenderness (L), Distended, Guarding Pelvic Exam: Positive: Bimanual Exam Normal, No Cerv. Motion Tender, Discharge - WHITE D/C IN VAGINAL VAULT, Other - IUD STRINGS VISIBLE. VAGINAL MUCOSA RED AND IRRITATED.. Negative: Tender Uterus, Ulcers Musculoskeletal: Positive: No Edema Neurological: Positive: Alert Psychological: Positive: Age Appropriate Behavior Skin: Negative: Rashes Complaint Female Dx - Course Course Of Treatment: GIVEN PATIENT'S PRESENTATION AND RECENT ANTIBIOTIC USE LIKELY DIAGNOSIS IS YEAST VAGINITIS. WILL TREAT WITH DIFLUCAN AND HAVE ALSO ADVISED OTC MONISTAT PRODUCT. SWAB SENT FOR VAGINITIS AND GC/CHLAMYDIA. FULL STD TESTING DECLINED. URINE SENT FOR CULTURE. SYMPTOMS MORE IN LINE WITH VAGINITIS THAN WITH UTI. WILL HOLD OFF ON FURTHER ANTIBIOTICS AND AWAIT URINE CULTURE RESULTS. - Differential Dx/Diagnosis Provider Diagnosis: Vaginitis Discharge - Sign-Out/Discharge Documenting (check all that apply): Patient Departure All imaging exams completed and their final reports reviewed: No Studies - Discharge Plan Condition: Stable Disposition: HOME Prescriptions: Fluconazole [Diflucan] 1 tab PO ONCE #2 tab Patient Education Materials: Vaginitis (ED) Referrals: Misael Neri MD [Primary Care Provider] - If Needed Additional Instructions: WILL TREAT YOU TODAY FOR YEAST VAGINITIS BASED ON YOUR PRESENTATION AND HISTORY OF RECENT ANTIBIOTIC USE. TAKE THE ORAL MEDICATION. ALSO WOULD RECOMMEND YOU USE AN OTC MONISTAT PRODUCT TO HELP WITH YOUR SYMPTOMS. SWABS SENT TO TEST FOR THE MOST COMMON TYPES OF VAGINITIS. SWAB ALSO SENT FOR GONORRHEA AND CHLAMYDIA. WE HAVE SENT YOUR URINE FOR CULTURE. WE WILL CALL YOU IF YOU NEED TO BE TREATED FOR A UTI. - Billing Disposition and Condition Condition: STABLE Disposition: Home
== END 2018-07-18 11:54 | disposition home or self-care (01) ==
LOC: UCEAST 10:17
DX: N76.0 Acute vaginitis (principal); J45.909 Unspecified asthma, uncomplicated; Z88.2 Allergy status to sulfonamides; Z91.018 Allergy to other foods
CPT/HCPCS: 81003; 87086; 87480; 87491; 87510; 87591; 87661; 99211; G0463

== ENCOUNTER 2021-07-23 06:00 | Inpatient (IN) ==
[~2021-07-23 06:00] MED LIST: Buffered Lidocaine 1% SYRIN 1 ml INTRADERM ONE; Lactated Ringers 1000 ml BAG 1,000 ML IV SCH
[2021-07-23] MEDS ORDERED: Heparin 5000 UNITS/ML 1 mL VIAL ONE (06:23)
[2021-07-23] MEDS ORDERED: ceFAZolin 2 GM in NS PREMIX 2 GM/100 ML BAG IVPB ONE (06:24)
[2021-07-23] MEDS ORDERED: ceFAZolin 1 GM ADVAN 1 GM ADDV.VIAL IVPB ONE (06:24)
[2021-07-23] MEDS ORDERED: Bupivacaine 0.25% SDV 30 ML ONE (07:11)
[2021-07-23] MEDS ORDERED: Methylene Blue 0.5 % 50 MG/10 ML AMP IV ONE (07:11)
[2021-07-23] MEDS ORDERED: Bupivacaine 0.5% SDV PF 30ML VIAL ONE (07:11)
[2021-07-23] MEDS ORDERED: Midazolam 2 mg/2 ml VIAL 1 mg/ml 2 ml VIAL (2 mg) ONE (07:33)
[2021-07-23] MEDS ORDERED: HYDROmorphone 0.5 MG/0.5 ML SYRINGE ONE ×3 (08:11→10:48)
[2021-07-23] MEDS ORDERED: Dexamethasone IV 4 MG/ML VIAL 1 ml VIAL ONE (08:29)
[2021-07-23] MEDS ORDERED: Metoclopramide 5 MG/ML VIAL (10 mg) ONE (08:29)
[2021-07-23] MEDS ORDERED: Ondansetron 4 mg VIAL 2 MG/ML 2 ml VIAL ONE (08:29)
[2021-07-23] MEDS ORDERED: Esmolol 10 MG/ML 10 ML (100 mg) ONE (08:29)
[2021-07-23] MEDS ORDERED: Rocuronium 50 mg VIAL 10 mg/ml 5 ml VIAL (50 mg) ONE (09:07)
[2021-07-23] MEDS ORDERED: Phenylephrine 40 mcg/mL 10mL (400mcg) SYRINGE ONE (09:21)
[2021-07-23] MEDS ORDERED: Propofol 10 MG/ML 20 ML BTL ONE (10:41)
[2021-07-23] MEDS ORDERED: HYDROcodone/ACET. 7.5/325 LIQ 15 ML UDC PO PRN (11:04)
[2021-07-23] MEDS ORDERED: Ondansetron 4 mg VIAL 2 MG/ML 2 ml VIAL IV PRN (11:04)
[2021-07-23] MEDS ORDERED: Albuterol/Ipratropium NEB.SOL (2.5/0.5 MG) 3 ML NEB.SOLN INH PRN (11:07)
[2021-07-23] MEDS: Lactated Ringers 1000 ml BAG 1,000 ML IV SCH ×2 (12:16→18:02)
[2021-07-23] MEDS ORDERED: Dexmedetomidine 200 mcg/2 ml 2 ml VIAL (200 mcg) ONE (12:37)
[2021-07-23] MEDS ORDERED: Albuterol HFA INHALER 8 gm MDI INH PRN (14:18)
[2021-07-23] MEDS ORDERED: Albuterol 2.5mg/3 ml (0.083%) NEB.SOLN INH PRN (14:48)
[2021-07-23 15:59] LABS: Rapid COVID-19 Molecular Undetected (Undetected)
[2021-07-23] MEDS: HYDROmorphone 0.5 MG/0.5 ML SYRINGE IV SLOW PU PRN ×2 (16:11→19:47)
[2021-07-23] MEDS: Mometasone/Formoter 200/5 MDI INH SCH (18:02)
[2021-07-23] MEDS ORDERED: SPIRIVA Respimat (tiotropium) 2.5 mcg/inh Inhaler INH SCH (21:00)
[2021-07-23] MEDS: Heparin 5000 UNITS/ML 1 mL VIAL SUBCUT SCH (22:14)
[2021-07-24] MEDS: Lactated Ringers 1000 ml BAG 1,000 ML IV SCH ×2 (00:43→07:35)
[2021-07-24] MEDS: Heparin 5000 UNITS/ML 1 mL VIAL SUBCUT SCH ×2 (05:47→14:27)
[2021-07-24] MEDS: Mometasone/Formoter 200/5 MDI INH SCH (07:36)
[2021-07-24] MEDS: HYDROmorphone 0.5 MG/0.5 ML SYRINGE IV SLOW PU PRN (07:51)
[2021-07-24 09:45] LABS: Urine Appearance Cloudy; Urine Bilirubin Negative (Negative); Urine Blood 2+ (Negative); Urine Color Straw; Urine Glucose Negative (Negative); Urine Ketones 1+ (Negative); Urine Nitrite Negative (Negative); Urine Protein Negative (Negative); Urine Specific Gravity 1.005 (1.002-1.030); Urine Urobilinogen Negative (Negative)
[2021-07-24 09:51] LABS: Urine Bacteria Absent (Absent); Urine Red Blood Cell Absent (Absent); Urine Squamous Epithelial Cell Present (Absent); Urine White Blood Cell Absent (Absent)
[2021-07-24 11:38] VITALS: BP 132/66
[2021-07-24] MEDS ORDERED: D5W 1/2 NS KCl 20 meq 1000 ml 1,000 ML IV SCH (12:00)
== END 2021-07-24 16:46 | disposition home or self-care (01) | DRG 403 ==
LOC: AA 06:00 → SSU 12:04
PROVIDERS: ADMIT Surgery; ATTEND Surgery

== ENCOUNTER 2021-10-03 12:13 | Inpatient (IN) ==
[2021-10-03] MEDS ORDERED: Pantoprazole VIAL 40 MG VIAL IV ONE (13:18)
[2021-10-03 13:36] LABS: ABS Basophils 0.1 10^3/ul (0-0.2); ABS Eosinophils 0.2 10^3/ul (0-0.6); ABS Lymphocytes 2.4 10^3/ul (1.0-4.8); ABS Monocytes 0.6 10^3/ul (0-0.8); Eosinophil % 1.7 %; Hematocrit 26 % (35-47); Hemoglobin 8.7 g/dL (12.0-16.0); Lymphocyte % 23.5 %; Mean Corpuscular HGB Conc 33 g/dL (31-36); Mean Corpuscular Hemoglobin 30 pg (27-31); Mean Corpuscular Volume 92 fL (80-97); Platelet Count 228 10^3/uL (150-450); Red Blood Count 2.87 10^6 /uL (3.70-4.87); Red Cell Distribution Width 15 % (10-15); White Blood Count 10.3 10^3/uL (3.5-10.8)
[2021-10-03 13:49] LABS: INR 1.33 (0.86-1.15)
[2021-10-03] MEDS ORDERED: Lactated Ringers 1000 ml BAG 1,000 ML IV SCH ×2 (14:00→15:10)
[2021-10-03 14:25] LABS: HCG Pregnancy < 0.60 mIU/mL
[2021-10-03 14:30] LABS: ALT 13 U/L (7-52); AST 14 U/L (13-39); Albumin/Globulin Ratio 1.7 (1-3); Alkaline Phosphatase 135 U/L (35-149); Anion Gap 8 mmol/L (2-11); Blood Urea Nitrogen 14 mg/dL (6-24); C Reactive Protein 8.43 mg/L (<8.01); CO2 Carbon Dioxide 24 mmol/L (22-32); Chloride 106 mmol/L (101-111); Globulin 2.4 g/dL (2-4); Glucose 88 mg/dL (70-100); Lipase 61 U/L (11.0-82.0); Potassium 3.8 mmol/L (3.5-5.0); Sodium 138 mmol/L (135-145); Total Protein 6.4 g/dL (6.4-8.9); eGFR CKD-EPI 121.4 (>60)
[2021-10-03] MEDS ORDERED: Naloxone 0.4 mg VIAL 0.4 mg/ml 1 ml VIAL IV PRN (15:04)
[2021-10-03] MEDS ORDERED: Midazolam 2 mg/2 ml VIAL 1 mg/ml 2 ml VIAL (2 mg) ONE (15:21)
[2021-10-03] MEDS ORDERED: Propofol 10 MG/ML 20 ML BTL ONE ×2 (15:22→16:16)
[2021-10-03] MEDS ORDERED: fentaNYL 100 mcg/2 ml 50 MCG/ML VIAL ONE (15:24)
[2021-10-03] MEDS ORDERED: Phenylephrine 40 mcg/mL 10mL (400mcg) SYRINGE ONE (16:12)
[2021-10-03] MEDS ORDERED: EPINEPHrine SYR 0.1MG/ML 10 ml SYRINGE ONE (16:28)
[2021-10-03] MEDS: Pantoprazole 80 mg in NS BAG 80 MG/250 ML BAG IV SCH (16:45)
[2021-10-03] MEDS: HYDROmorphone 0.5 MG/0.5 ML SYRINGE IV SLOW PU PRN (20:40)
[2021-10-03] MEDS: Lactated Ringers 1000 ml BAG 1,000 ML IV SCH (22:30)
[2021-10-04] MEDS: Pantoprazole 80 mg in NS BAG 80 MG/250 ML BAG IV SCH ×3 (02:53→23:17)
[2021-10-04 06:11] LABS: ABS Eosinophils 0.2 10^3/ul (0-0.6); ABS Lymphocytes 2.2 10^3/ul (1.0-4.8); ABS Monocytes 0.5 10^3/ul (0-0.8); ABS Neutrophils 4.6 10^3/ul (1.5-7.7); Eosinophil % 2.4 %; Hematocrit 24 % (35-47); Hemoglobin 7.8 g/dL (12.0-16.0); Lymphocyte % 29.5 %; Mean Corpuscular HGB Conc 32 g/dL (31-36); Mean Corpuscular Hemoglobin 30 pg (27-31); Mean Corpuscular Volume 93 fL (80-97); Mean Platelet Volume 10.2 fL (7.4-10.4); Platelet Count 194 10^3/uL (150-450); Red Blood Count 2.58 10^6 /uL (3.70-4.87); Red Cell Distribution Width 14 % (10-15); White Blood Count 7.6 10^3/uL (3.5-10.8)
[2021-10-04 06:45] LABS: Calcium 8.3 mg/dL (8.6-10.3); Potassium 3.6 mmol/L (3.5-5.0); eGFR CKD-EPI 123.3 (>60)
[2021-10-04] MEDS: Lactated Ringers 1000 ml BAG 1,000 ML IV SCH ×3 (06:46→23:17)
[2021-10-04] MEDS: Iron Sucrose 200 MG in NS 0.9% 100 ml BAG 100 ML IVPB SCH (13:49)
[2021-10-05] MEDS: Lactated Ringers 1000 ml BAG 1,000 ML IV SCH ×3 (07:08→23:31)
[2021-10-05] MEDS: Iron Sucrose 200 MG in NS 0.9% 100 ml BAG 100 ML IVPB SCH (09:01)
[2021-10-05 09:32] LABS: Hematocrit 25 % (35-47); Hemoglobin 7.9 g/dL (12.0-16.0)
[2021-10-05] MEDS: Pantoprazole 80 mg in NS BAG 80 MG/250 ML BAG IV SCH ×2 (10:32→20:50)
[2021-10-05] MEDS: Ondansetron 4 mg VIAL 2 MG/ML 2 ml VIAL IV PRN (18:21)
[2021-10-05] MEDS: HYDROmorphone 0.5 MG/0.5 ML SYRINGE IV SLOW PU PRN (20:50)
[2021-10-06 06:10] LABS: Hematocrit 24 % (35-47); Hemoglobin 7.7 g/dL (12.0-16.0); Mean Corpuscular HGB Conc 32 g/dL (31-36); Mean Corpuscular Hemoglobin 29 pg (27-31); Mean Corpuscular Volume 92 fL (80-97); Mean Platelet Volume 9.4 fL (7.4-10.4); Platelet Count 239 10^3/uL (150-450); Red Blood Count 2.66 10^6 /uL (3.70-4.87); Red Cell Distribution Width 15 % (10-15)
[2021-10-06] MEDS: Pantoprazole 80 mg in NS BAG 80 MG/250 ML BAG IV SCH ×2 (07:31→18:12)
[2021-10-06] MEDS: Lactated Ringers 1000 ml BAG 1,000 ML IV SCH ×2 (07:31→16:10)
[2021-10-06] MEDS: HYDROmorphone 0.5 MG/0.5 ML SYRINGE IV SLOW PU PRN ×2 (10:33→20:24)
[2021-10-06] MEDS: Ondansetron 4 mg VIAL 2 MG/ML 2 ml VIAL IV PRN ×2 (10:33→18:12)
[2021-10-07] MEDS: Pantoprazole 80 mg in NS BAG 80 MG/250 ML BAG IV SCH ×2 (04:34→15:21)
[2021-10-07] MEDS: Lactated Ringers 1000 ml BAG 1,000 ML IV SCH (04:37)
[2021-10-07 06:07] LABS: ABS Eosinophils 0.3 10^3/ul (0-0.6); ABS Lymphocytes 2.5 10^3/ul (1.0-4.8); ABS Monocytes 0.6 10^3/ul (0-0.8); ABS Neutrophils 5.2 10^3/ul (1.5-7.7); Eosinophil % 3.6 %; Hematocrit 24 % (35-47); Hemoglobin 7.6 g/dL (12.0-16.0); Lymphocyte % 28.7 %; Mean Corpuscular HGB Conc 32 g/dL (31-36); Mean Corpuscular Hemoglobin 30 pg (27-31); Mean Corpuscular Volume 94 fL (80-97); Mean Platelet Volume 10.3 fL (7.4-10.4); Nucleated Red Blood Cells % 0.1; Platelet Count 243 10^3/uL (150-450); Red Blood Count 2.53 10^6 /uL (3.70-4.87); Red Cell Distribution Width 15 % (10-15); White Blood Count 8.6 10^3/uL (3.5-10.8)
[2021-10-07] MEDS ORDERED: RIZATRIPTAN 10 MG PO PRN (10:41)
[2021-10-07] MEDS ORDERED: RIMEGEPANT 75 MG PO PRN (10:41)
[2021-10-07] MEDS ORDERED: Iron Sucrose 200 MG in NS 0.9% 100 ml BAG 100 ML IVPB ONE (11:00)
[2021-10-07] MEDS: Sucralfate 1 gm SUSP 1 GM/10 ML UDC PO SCH ×2 (12:13→16:43)
[2021-10-07] MEDS: Multivitamins/Minerals TAB PO SCH (12:24)
[2021-10-07] MEDS ORDERED: Thiamine 100 MG/ML 2 ml VIAL 100 MG, Folic Acid IV 1 MG, Multiple Vitamin IV ADULT 10 M... IV ONE (12:30)
[2021-10-07] MEDS: Mometasone/Formoter 200/5 MDI INH SCH (20:03)
[2021-10-08] MEDS: Pantoprazole 80 mg in NS BAG 80 MG/250 ML BAG IV SCH ×2 (01:10→12:46)
[2021-10-08 06:26] LABS: Hematocrit 24 % (35-47); Hemoglobin 7.9 g/dL (12.0-16.0)
[2021-10-08] MEDS: Mometasone/Formoter 200/5 MDI INH SCH (06:44)
[2021-10-08] MEDS: Sucralfate 1 gm SUSP 1 GM/10 ML UDC PO SCH ×2 (08:25→11:58)
[2021-10-08] MEDS: Multivitamins/Minerals TAB PO SCH (08:26)
[2021-10-08] MEDS ORDERED: Multivitamins/Minerals TAB PO SCH (11:00)
[2021-10-08 17:37] VITALS: BP 98/60
== END 2021-10-08 17:30 | disposition home or self-care (01) | DRG 241 ==
LOC: ED 12:13 → EDHOLD 13:51 → SSU 14:58 → OR 14:58 → OBSVTOIN 18:23
PROVIDERS: ADMIT Surgery; ATTEND Surgery
PROC: O.GIEGD (2021-10-03 14:45)

== ENCOUNTER 2021-11-22 12:41 | Inpatient (IN) ==
[2021-11-22 13:20] LABS: ABS Basophils 0.1 10^3/ul (0-0.2); ABS Eosinophils 0.1 10^3/ul (0-0.6); ABS Lymphocytes 1.3 10^3/ul (1.0-4.8); ABS Monocytes 0.6 10^3/ul (0-0.8); ABS Neutrophils 10.1 10^3/ul (1.5-7.7); Eosinophil % 0.4 %; Hematocrit 26 % (35-47); Hemoglobin 8.1 g/dL (12.0-16.0); Lymphocyte % 10.5 %; Mean Corpuscular HGB Conc 31 g/dL (31-36); Mean Corpuscular Hemoglobin 28 pg (27-31); Mean Corpuscular Volume 88 fL (80-97); Mean Platelet Volume 9.5 fL (7.4-10.4); Platelet Count 217 10^3/uL (150-450); Red Blood Count 2.94 10^6 /uL (3.70-4.87); Red Cell Distribution Width 17 % (10-15); White Blood Count 12.1 10^3/uL (3.5-10.8)
[2021-11-22] MEDS ORDERED: Pantoprazole VIAL 40 MG VIAL IV ONE ×2 (13:23→14:19)
[2021-11-22 13:45] LABS: ALT 17 U/L (7-52); AST 16 U/L (13-39); Albumin 3.9 g/dL (3.2-5.2); Albumin/Globulin Ratio 1.7 (1-3); Alkaline Phosphatase 144 U/L (35-149); Anion Gap 5 mmol/L (2-11); Blood Urea Nitrogen 19 mg/dL (6-24); CO2 Carbon Dioxide 25 mmol/L (22-32); Calcium 8.7 mg/dL (8.6-10.3); Chloride 110 mmol/L (101-111); Creatine Kinase 41 U/L (10-223); Globulin 2.3 g/dL (2-4); Glucose 97 mg/dL (70-100); Potassium 3.6 mmol/L (3.5-5.0); Sodium 140 mmol/L (135-145); Total Protein 6.2 g/dL (6.4-8.9); eGFR CKD-EPI 120.1 (>60)
[2021-11-22 13:52] LABS: HCG Pregnancy < 0.60 mIU/mL
[2021-11-22] MEDS ORDERED: Thiamine 100 MG/ML 2 ml VIAL 100 MG, Folic Acid IV 1 MG, Multiple Vitamin IV ADULT 10 M... IV ONE (14:00)
[2021-11-22] MEDS ORDERED: Pantoprazole 80 mg in NS BAG 80 MG/250 ML BAG IV ONE (14:17)
[2021-11-22] MEDS ORDERED: Sucralfate 1 gm SUSP 1 GM/10 ML UDC PO ONE (14:22)
[2021-11-22] MEDS ORDERED: NS 0.9% 1000 ml BAG 1,000 ML IV ONE (16:03)
[2021-11-22] MEDS: Lactated Ringers 1000 ml BAG 1,000 ML IV SCH (17:54)
[2021-11-22] MEDS: Ondansetron 4 mg VIAL 2 MG/ML 2 ml VIAL IV PRN (17:54)
[2021-11-22 18:45] LABS: ABS Eosinophils 0.1 10^3/ul (0-0.6); ABS Lymphocytes 2.1 10^3/ul (1.0-4.8); ABS Monocytes 0.5 10^3/ul (0-0.8); ABS Neutrophils 6.9 10^3/ul (1.5-7.7); Eosinophil % 0.6 %; Hematocrit 22 % (35-47); Hemoglobin 6.9 g/dL (12.0-16.0); Lymphocyte % 22.2 %; Mean Corpuscular HGB Conc 31 g/dL (31-36); Mean Corpuscular Hemoglobin 28 pg (27-31); Mean Corpuscular Volume 89 fL (80-97); Platelet Count 192 10^3/uL (150-450); Red Blood Count 2.49 10^6 /uL (3.70-4.87); Red Cell Distribution Width 17 % (10-15); White Blood Count 9.6 10^3/uL (3.5-10.8)
[2021-11-22] MEDS ORDERED: fentaNYL 100 mcg/2 ml 50 MCG/ML VIAL ONE ×2 (20:19→20:30)
[2021-11-22] MEDS ORDERED: Midazolam 5 mg/5 ml VIAL 1 mg/ml 5 ml VIAL (5 mg) ONE (20:19)
[2021-11-22] MEDS ORDERED: Propofol 10 MG/ML 20 ML BTL ONE (20:58)
[2021-11-22] MEDS ORDERED: Succinylcholine 200 mg VIAL 20 mg/ml 10 ml VIAL (200 mg) ONE (20:58)
[2021-11-22] MEDS ORDERED: Ondansetron 4 mg VIAL 2 MG/ML 2 ml VIAL ONE (20:58)
[2021-11-22] MEDS ORDERED: Acetaminophen IV 1 GM/100ML 100 ML IV ONE (21:20)
[2021-11-22] MEDS ORDERED: Naloxone 0.4 mg VIAL 0.4 mg/ml 1 ml VIAL IV PRN (21:20)
[2021-11-23 00:50] LABS: Hematocrit 27 % (35-47); Hemoglobin 8.7 g/dL (12.0-16.0)
[2021-11-23] MEDS: Pantoprazole 80 mg in NS BAG 80 MG/250 ML BAG IV SCH ×2 (01:04→12:09)
[2021-11-23 05:30] LABS: ABS Eosinophils 0.1 10^3/ul (0-0.6); ABS Lymphocytes 2.2 10^3/ul (1.0-4.8); ABS Monocytes 0.4 10^3/ul (0-0.8); Eosinophil % 1.4 %; Hematocrit 26 % (35-47); Hemoglobin 8.5 g/dL (12.0-16.0); Lymphocyte % 28.2 %; Mean Corpuscular HGB Conc 32 g/dL (31-36); Mean Corpuscular Hemoglobin 28 pg (27-31); Mean Corpuscular Volume 87 fL (80-97); Platelet Count 175 10^3/uL (150-450); Red Blood Count 3.01 10^6 /uL (3.70-4.87); Red Cell Distribution Width 16 % (10-15); White Blood Count 7.8 10^3/uL (3.5-10.8)
[2021-11-23 06:01] LABS: Albumin 2.9 g/dL (3.2-5.2); Albumin/Globulin Ratio 1.6 (1-3); Calcium 7.9 mg/dL (8.6-10.3); Globulin 1.8 g/dL (2-4); Potassium 3.6 mmol/L (3.5-5.0); Total Bilirubin 1.1 mg/dL (0.2-1.0); Total Protein 4.7 g/dL (6.4-8.9); eGFR CKD-EPI 128.1 (>60)
[2021-11-23 14:06] LABS: Hematocrit 29 % (35-47); Hemoglobin 9.4 g/dL (12.0-16.0)
[2021-11-23] MEDS ORDERED: RIZATRIPTAN 10 MG PO PRN (14:18)
[2021-11-23] MEDS: Lactated Ringers 1000 ml BAG 1,000 ML IV SCH (15:51)
[2021-11-24] MEDS: Pantoprazole 80 mg in NS BAG 80 MG/250 ML BAG IV SCH ×4 (00:23→20:54)
[2021-11-24] MEDS: Lactated Ringers 1000 ml BAG 1,000 ML IV SCH ×3 (00:26→22:30)
[2021-11-24 06:30] LABS: ABS Eosinophils 0.2 10^3/ul (0-0.6); ABS Monocytes 0.5 10^3/ul (0-0.8); ABS Neutrophils 5.2 10^3/ul (1.5-7.7); Hematocrit 28 % (35-47); Hemoglobin 8.8 g/dL (12.0-16.0); Lymphocyte % 25.3 %; Mean Corpuscular HGB Conc 32 g/dL (31-36); Mean Corpuscular Hemoglobin 28 pg (27-31); Mean Corpuscular Volume 87 fL (80-97); Mean Platelet Volume 10.1 fL (7.4-10.4); Platelet Count 189 10^3/uL (150-450); Red Blood Count 3.16 10^6 /uL (3.70-4.87); Red Cell Distribution Width 16 % (10-15); White Blood Count 7.9 10^3/uL (3.5-10.8)
[2021-11-24 06:41] LABS: Calcium 8.1 mg/dL (8.6-10.3); Potassium 3.4 mmol/L (3.5-5.0); eGFR CKD-EPI 126.9 (>60)
[2021-11-24] MEDS ORDERED: Iohexol 300 (CONTRAST) 10 ML SDV IV ONE (11:39)
[2021-11-24] MEDS: Acetaminophen IV 1 GM/100ML 100 ML IV PRN (22:30)
[2021-11-25 05:59] LABS: ABS Eosinophils 0.2 10^3/ul (0-0.6); ABS Lymphocytes 1.8 10^3/ul (1.0-4.8); ABS Monocytes 0.5 10^3/ul (0-0.8); ABS Neutrophils 4.5 10^3/ul (1.5-7.7); Eosinophil % 3.2 %; Hematocrit 28 % (35-47); Lymphocyte % 25.3 %; Mean Corpuscular HGB Conc 32 g/dL (31-36); Mean Corpuscular Hemoglobin 28 pg (27-31); Mean Corpuscular Volume 88 fL (80-97); Mean Platelet Volume 9.9 fL (7.4-10.4); Platelet Count 204 10^3/uL (150-450); Red Blood Count 3.19 10^6 /uL (3.70-4.87); Red Cell Distribution Width 16 % (10-15); White Blood Count 7.1 10^3/uL (3.5-10.8)
[2021-11-25 06:14] LABS: Calcium 8.2 mg/dL (8.6-10.3); Potassium 3.2 mmol/L (3.5-5.0); eGFR CKD-EPI 124.8 (>60)
[2021-11-25] MEDS: Lactated Ringers 1000 ml BAG 1,000 ML IV SCH (07:26)
[2021-11-25] MEDS ORDERED: Lactated Ringers 1000 ml BAG 1,000 ML IV SCH (08:00)
[2021-11-25] MEDS: Acetaminophen IV 1 GM/100ML 100 ML IV PRN (08:06)
[2021-11-25] MEDS: Ondansetron 4 mg VIAL 2 MG/ML 2 ml VIAL IV PRN (08:15)
[2021-11-25] MEDS: KCL 20 MEQ/100 ML IVPREMIX 20 MEQ/100 ML BAG IV SCH ×2 (08:31→11:21)
[2021-11-25] MEDS: Ondansetron ODT 4 mg TAB 4 MG TAB SL SCH ×2 (09:10→11:23)
[2021-11-25 11:21] VITALS: BP 88/52
== END 2021-11-25 15:42 | disposition home or self-care (01) | DRG 241 ==
LOC: EDHOLD 12:41 → ED 12:41 → SSU 17:21
PROVIDERS: ADMIT Surgery; ATTEND Surgery
PROC: [UNRECOGNIZED PROCEDURE] (2021-11-22 20:00)

== ENCOUNTER 2021-12-05 16:16 | Observation (INO) ==
[2021-12-05] MEDS ORDERED: cefTRIAXone 2 gm/50 mL D5W 2 GM/50 ML BAG IV ONE ×2 (16:51→16:59)
[2021-12-05] MEDS ORDERED: Iohexol 180 (CONTRAST) 10 ML SDV IV ONE (17:35)
[2021-12-05] MEDS ORDERED: Iohexol 180 (CONTRAST) 20 ML SDV IV ONE (17:36)
[2021-12-05] MEDS ORDERED: Ondansetron 4 mg VIAL 2 MG/ML 2 ml VIAL IV PRN ×3 (18:59→19:37)
[2021-12-05] MEDS ORDERED: oxyCODONE/Acetamin 5/325 mg TAB PO PRN (19:02)
[2021-12-05] MEDS ORDERED: fentaNYL 100 mcg/2 ml 50 MCG/ML VIAL IV PRN ×2 (19:05→19:37)
[2021-12-05] MEDS ORDERED: Naloxone 0.4 mg VIAL 0.4 mg/ml 1 ml VIAL IV PRN (19:05)
[2021-12-05] MEDS ORDERED: Prochlorperazine 5 mg/ml 2 ml VIAL (10 mg) IV PRN (19:37)
[2021-12-05] MEDS ORDERED: GENTAMICIN IV ONE (20:00)
[2021-12-05 20:08] LABS: ABS Eosinophils 0.1 10^3/ul (0-0.6); ABS Lymphocytes 1.3 10^3/ul (1.0-4.8); ABS Monocytes 0.4 10^3/ul (0-0.8); ABS Neutrophils 13.8 10^3/ul (1.5-7.7); Eosinophil % 0.9 %; Hematocrit 32 % (35-47); Hemoglobin 10.1 g/dL (12.0-16.0); Lymphocyte % 8.2 %; Mean Corpuscular HGB Conc 31 g/dL (31-36); Mean Corpuscular Hemoglobin 27 pg (27-31); Mean Corpuscular Volume 88 fL (80-97); Mean Platelet Volume 9.2 fL (7.4-10.4); Platelet Count 272 10^3/uL (150-450); Red Blood Count 3.68 10^6 /uL (3.70-4.87); Red Cell Distribution Width 16 % (10-15); White Blood Count 15.7 10^3/uL (3.5-10.8)
[2021-12-05 20:42] LABS: Albumin 3.8 g/dL (3.2-5.2); Albumin/Globulin Ratio 1.5 (1-3); Calcium 8.8 mg/dL (8.6-10.3); Globulin 2.6 g/dL (2-4); Potassium 3.5 mmol/L (3.5-5.0); Total Bilirubin 0.3 mg/dL (0.2-1.0); Total Protein 6.4 g/dL (6.4-8.9); eGFR CKD-EPI 95.8 (>60)
[2021-12-05] MEDS: Thiamine 100 MG/ML 2 ml VIAL 100 MG, Folic Acid IV 1 MG, Multiple Vitamin IV ADULT 10 M... IV ONE (22:31)
[2021-12-05] MEDS ORDERED: Gentamicin ADULT 140 MG in NS 0.9% 100 ml BAG 100 ML IVPB ONE (23:00)
[2021-12-05] MEDS ORDERED: LACTATED RINGERS 1000 ML BAG IV SCH (23:00)
[2021-12-06] MEDS ORDERED: Senna TAB 8.6 mg TAB PO PRN (00:02)
[2021-12-06] MEDS: Thiamine 100 MG/ML 2 ml VIAL 100 MG, Folic Acid IV 1 MG, Multiple Vitamin IV ADULT 10 M... IV ONE (00:16)
[2021-12-06] MEDS ORDERED: Mometasone/Formoter 200/5 MDI INH SCH (07:00)
[2021-12-06 11:19] VITALS: BP 102/51
== END 2021-12-06 12:30 | disposition home or self-care (01) ==
LOC: ED 16:16 → SDS 19:34 → SSU 19:34 → SUATTDRO 22:00
PROVIDERS: ADMIT Emergency Medicine; ATTEND Hospitalist

== ENCOUNTER 2022-08-28 07:44 | Inpatient (IN) ==
[2022-08-28 08:56] LABS: ABS Basophils 0.1 10^3/ul (0-0.2); ABS Eosinophils 0.1 10^3/ul (0-0.6); ABS Lymphocytes 1.6 10^3/ul (1.0-4.8); ABS Monocytes 0.3 10^3/ul (0-0.8); ABS Neutrophils 5.3 10^3/ul (1.5-7.7); Eosinophil % 1.1 %; Hematocrit 43 % (35-47); Hemoglobin 14.1 g/dL (12.0-16.0); Mean Corpuscular HGB Conc 33 g/dL (31-36); Mean Corpuscular Hemoglobin 32 pg (27-31); Mean Corpuscular Volume 96 fL (80-97); Mean Platelet Volume 9.2 fL (7.4-10.4); Platelet Count 216 10^3/uL (150-450); Red Blood Count 4.49 10^6 /uL (3.70-4.87); Red Cell Distribution Width 13 % (10-15); White Blood Count 7.4 10^3/uL (3.5-10.8)
[2022-08-28 09:32] LABS: Urine Appearance Cloudy; Urine Bilirubin Negative (Negative); Urine Blood 1+ (Negative); Urine Color Yellow; Urine Glucose Negative (Negative); Urine Ketones Negative (Negative); Urine Nitrite Negative (Negative); Urine Protein Negative (Negative); Urine Specific Gravity 1.024 (1.002-1.030); Urine Urobilinogen Negative (Negative)
[2022-08-28 09:35] LABS: Urine Bacteria Absent (Absent); Urine Red Blood Cell 1+(3-5/hpf) (Absent); Urine Squamous Epithelial Cell Present (Absent); Urine White Blood Cell Trace(0-5/hpf) (Absent)
[2022-08-28 09:49] LABS: ALT 16 U/L (7-52); AST 14 U/L (13-39); Albumin 4.4 g/dL (3.2-5.2); Albumin/Globulin Ratio 1.8 (1-3); Alkaline Phosphatase 131 U/L (35-149); Anion Gap 2 mmol/L (2-11); Blood Urea Nitrogen 12 mg/dL (6-24); CO2 Carbon Dioxide 31 mmol/L (22-32); Calcium 9.3 mg/dL (8.6-10.3); Chloride 107 mmol/L (101-111); Creatinine, Serum 0.67 mg/dL (0.51-0.95); Globulin 2.4 g/dL (2-4); Glucose 83 mg/dL (70-100); Lipase 32 U/L (11.0-82.0); Potassium 4.2 mmol/L (3.5-5.0); Sodium 140 mmol/L (135-145); Total Protein 6.8 g/dL (6.4-8.9); eGFR CKD-EPI 119.8 (>60)
[2022-08-28 09:55] LABS: HCG Pregnancy < 0.60 mIU/mL
[2022-08-28] MEDS ORDERED: Famotidine IV 10 MG/ML 2 ml VIAL (20 mg) IV SLOW PU ONE (10:27)
[2022-08-28] MEDS ORDERED: Ondansetron 4 mg VIAL 2 MG/ML 2 ml VIAL IV ONE (10:27)
[2022-08-28] MEDS ORDERED: Morphine 4 MG/ML VIAL (1 ml) IV ONE ×2 (10:27→14:27)
[2022-08-28] MEDS ORDERED: Iohexol 350 (CONTRAST) 500 ML MDV IV ONE (10:31)
[2022-08-28] MEDS ORDERED: RIMEGEPANT SULFATE 75 MG ODT TAB (NF) PO PRN (14:39)
[2022-08-28] MEDS ORDERED: Rizatriptan ODT 10 mg TAB (NF) PO PRN (14:39)
[2022-08-28] MEDS ORDERED: Albuterol HFA INHALER 8 gm MDI INH PRN (14:39)
[2022-08-28] MEDS ORDERED: Thiamine 100 MG/ML 2 ml VIAL 100 MG, Folic Acid IV 1 MG, Multiple Vitamin IV ADULT 10 M... IV ONE ×2 (15:30)
[2022-08-28] MEDS: Pantoprazole VIAL 40 MG VIAL IV SCH (15:50)
[2022-08-28] MEDS: Ondansetron 4 mg VIAL 2 MG/ML 2 ml VIAL IV PRN (18:18)
[2022-08-28] MEDS: HYDROmorphone 1 MG/1 ML SYRINGE IV SLOW PU PRN ×2 (18:20→21:16)
[2022-08-28] MEDS: Mometasone/Formoter 200/5 MDI INH SCH (19:29)
[2022-08-28] MEDS: D5W 1/2 NS 1000 ml BAG 1,000 ML IV SCH (21:19)
[2022-08-28] MEDS: CMCS: Zonisamide 100 mg CAP (NF) PO SCH (22:38)
[2022-08-29 06:03] LABS: ABS Eosinophils 0.1 10^3/ul (0-0.6); ABS Lymphocytes 1.5 10^3/ul (1.0-4.8); ABS Monocytes 0.6 10^3/ul (0-0.8); ABS Neutrophils 5.4 10^3/ul (1.5-7.7); Hematocrit 35 % (35-47); Hemoglobin 11.4 g/dL (12.0-16.0); Lymphocyte % 19.4 %; Mean Corpuscular HGB Conc 33 g/dL (31-36); Mean Corpuscular Hemoglobin 32 pg (27-31); Mean Corpuscular Volume 97 fL (80-97); Mean Platelet Volume 9.6 fL (7.4-10.4); Platelet Count 170 10^3/uL (150-450); Red Blood Count 3.56 10^6 /uL (3.70-4.87); Red Cell Distribution Width 13 % (10-15); White Blood Count 7.6 10^3/uL (3.5-10.8)
[2022-08-29 06:43] LABS: Calcium 8.3 mg/dL (8.6-10.3); Creatinine, Serum 0.62 mg/dL (0.51-0.95); Potassium 3.8 mmol/L (3.5-5.0)
[2022-08-29] MEDS: Mometasone/Formoter 200/5 MDI INH SCH ×2 (07:54→20:44)
[2022-08-29] MEDS: HYDROmorphone 0.5 MG/0.5 ML SYRINGE IV SLOW PU PRN ×2 (09:07→14:29)
[2022-08-29] MEDS: Ondansetron 4 mg VIAL 2 MG/ML 2 ml VIAL IV PRN ×2 (09:07→20:51)
[2022-08-29] MEDS: Acetaminophen IV 1 GM/100ML 1,000 MG/100 ML BAG IV PRN ×3 (10:36→23:46)
[2022-08-29] MEDS: D5W 1/2 NS 1000 ml BAG 1,000 ML IV SCH ×2 (10:37→23:47)
[2022-08-29] MEDS: Pantoprazole VIAL 40 MG VIAL IV SCH (14:29)
[2022-08-29] MEDS ORDERED: Lactated Ringers 1000 ml BAG 1,000 ML IV ONE (16:36)
[2022-08-29] MEDS: CMCS: Zonisamide 100 mg CAP (NF) PO SCH (20:49)
[2022-08-30] MEDS: Mometasone/Formoter 200/5 MDI INH SCH ×2 (08:30→20:26)
[2022-08-30] MEDS: Acetaminophen IV 1 GM/100ML 1,000 MG/100 ML BAG IV PRN ×2 (09:00→22:37)
[2022-08-30] MEDS: Ondansetron 4 mg VIAL 2 MG/ML 2 ml VIAL IV PRN ×2 (09:22→15:22)
[2022-08-30 09:44] LABS: ABS Eosinophils 0.1 10^3/ul (0-0.6); ABS Lymphocytes 1.3 10^3/ul (1.0-4.8); ABS Monocytes 0.4 10^3/ul (0-0.8); ABS Neutrophils 3.8 10^3/ul (1.5-7.7); Hematocrit 36 % (35-47); Hemoglobin 11.5 g/dL (12.0-16.0); Lymphocyte % 23.8 %; Mean Corpuscular HGB Conc 32 g/dL (31-36); Mean Corpuscular Hemoglobin 31 pg (27-31); Mean Corpuscular Volume 97 fL (80-97); Mean Platelet Volume 9.6 fL (7.4-10.4); Platelet Count 167 10^3/uL (150-450); Red Blood Count 3.68 10^6 /uL (3.70-4.87); Red Cell Distribution Width 13 % (10-15); White Blood Count 5.7 10^3/uL (3.5-10.8)
[2022-08-30 10:20] LABS: Calcium 8.8 mg/dL (8.6-10.3); Creatinine, Serum 0.63 mg/dL (0.51-0.95); Potassium 3.6 mmol/L (3.5-5.0); eGFR CKD-EPI 121.6 (>60)
[2022-08-30] MEDS: Pantoprazole VIAL 40 MG VIAL IV SCH (15:22)
[2022-08-30] MEDS: Sucralfate 1 gm SUSP 1 GM/10 ML UDC PO PRN ×2 (15:22→22:37)
[2022-08-30] MEDS: CMCS: Zonisamide 100 mg CAP (NF) PO SCH (22:36)
[2022-08-30] MEDS: D5W 1/2 NS 40 Meq KCL 1000 ml 1,000 ML IV SCH (23:11)
[2022-08-31 06:03] LABS: ABS Eosinophils 0.1 10^3/ul (0-0.6); ABS Lymphocytes 1.9 10^3/ul (1.0-4.8); ABS Monocytes 0.4 10^3/ul (0-0.8); Eosinophil % 2.5 %; Hematocrit 35 % (35-47); Hemoglobin 11.3 g/dL (12.0-16.0); Lymphocyte % 35.2 %; Mean Corpuscular HGB Conc 33 g/dL (31-36); Mean Corpuscular Hemoglobin 32 pg (27-31); Mean Corpuscular Volume 97 fL (80-97); Mean Platelet Volume 9.7 fL (7.4-10.4); Platelet Count 161 10^3/uL (150-450); Red Blood Count 3.54 10^6 /uL (3.70-4.87); Red Cell Distribution Width 13 % (10-15); White Blood Count 5.4 10^3/uL (3.5-10.8)
[2022-08-31 06:35] LABS: Calcium 8.6 mg/dL (8.6-10.3); Creatinine, Serum 0.62 mg/dL (0.51-0.95); Potassium 4.1 mmol/L (3.5-5.0)
[2022-08-31] MEDS ORDERED: fentaNYL 100 mcg/2 ml 50 MCG/ML VIAL IV SLOW PU ONE (07:21)
[2022-08-31] MEDS ORDERED: Flumazenil 0.5 mg/5 ml 0.1 MG/ML 5 ml VIAL IV PRN (07:21)
[2022-08-31] MEDS ORDERED: Midazolam 10 mg/10 ml VIAL 1 mg/ml 10 ml VIAL (10 mg) IV SLOW PU ONE (07:21)
[2022-08-31] MEDS ORDERED: Lidocaine 2% JELLY 6 ML Topical TOPICAL ONE (07:21)
[2022-08-31] MEDS ORDERED: Naloxone 0.4 mg VIAL 0.4 mg/ml 1 ml VIAL IV PUSH PRN (07:21)
[2022-08-31] MEDS ORDERED: Ondansetron 4 mg VIAL 2 MG/ML 2 ml VIAL IV ONE (07:21)
[2022-08-31] MEDS ORDERED: Lactated Ringers 1000 ml BAG 1,000 ML IV ONE (07:21)
[2022-08-31] MEDS: HYDROmorphone 0.5 MG/0.5 ML SYRINGE IV SLOW PU PRN ×2 (08:02→21:38)
[2022-08-31] MEDS: Mometasone/Formoter 200/5 MDI INH SCH ×2 (08:33→19:52)
[2022-08-31] MEDS: D5W 1/2 NS 40 Meq KCL 1000 ml 1,000 ML IV SCH ×2 (09:42→21:35)
[2022-08-31] MEDS ORDERED: fentaNYL 100 mcg/2 ml 50 MCG/ML VIAL ONE (16:31)
[2022-08-31] MEDS ORDERED: Midazolam 10 mg/10 ml VIAL 1 mg/ml 10 ml VIAL (10 mg) ONE (16:31)
[2022-08-31] MEDS: Pantoprazole VIAL 40 MG VIAL IV SCH (17:42)
[2022-08-31] MEDS: CMCS: Zonisamide 100 mg CAP (NF) PO SCH (21:38)
[2022-09-01] MEDS: Mometasone/Formoter 200/5 MDI INH SCH (08:32)
[2022-09-01] MEDS: D5W 1/2 NS 40 Meq KCL 1000 ml 1,000 ML IV SCH (08:33)
[2022-09-01] MEDS: Sucralfate 1 gm SUSP 1 GM/10 ML UDC PO PRN (08:35)
[2022-09-01] MEDS: Ondansetron 4 mg VIAL 2 MG/ML 2 ml VIAL IV PRN (09:19)
[2022-09-01 13:04] VITALS: BP 97/61
== END 2022-09-01 13:20 | disposition home or self-care (01) | DRG 222 ==
LOC: EDHOLD 07:44 → ED 07:44 → SSU 16:56
PROVIDERS: ADMIT Surgery; ATTEND Surgery

== ENCOUNTER 2023-08-20 14:00 | Inpatient (IN) ==
[2023-08-20] MEDS: HYDROcodone/ACETAMIN 5/325 mg TAB PO PRN (16:24)
[2023-08-20] MEDS: Ondansetron 4 mg VIAL 2 MG/ML 2 ml VIAL IV PRN (16:25)
[2023-08-20] MEDS: Lactated Ringers 1000 ml BAG 1,000 ML IV SCH (16:27)
[2023-08-20] MEDS: Pantoprazole 80 mg in NS BAG 80 MG/250 ML BAG IV SCH (17:52)
[2023-08-21] MEDS: Pantoprazole 80 mg in NS BAG 80 MG/250 ML BAG IV SCH (05:15)
[2023-08-21 06:24] LABS: ABS Eosinophils 0.1 10^3/uL (0.0-0.5); ABS Lymphocytes 2.3 10^3/uL (1.0-4.8); ABS Monocytes 0.5 10^3/uL (0.0-0.9); ABS Neutrophils 4.9 10^3/uL (1.5-7.6); Albumin 3.4 g/dL (3.2-5.2); Albumin/Globulin Ratio 1.6 (1-3); C Reactive Protein 4.98 mg/L (<8.01); Calcium 8.8 mg/dL (8.6-10.3); Creatinine, Serum 0.5 mg/dL (0.51-0.95); Eosinophil % 1.6 %; Globulin 2.1 g/dL (2-4); Hematocrit 32.1 % (35-45); Hemoglobin 10.8 g/dL (11.5-14.3); Lymphocyte % 28.9 %; Mean Corpuscular Hemoglobin 32.3 pg (27-33); Mean Corpuscular Hgb Conc 33.7 g/dL (31-36); Mean Corpuscular Volume 95.7 fL (80-97); Mean Platelet Volume 9.1 fL (7.5-11.2); Platelet Count 202 10^3/uL (150-450); Potassium 3.7 mmol/L (3.5-5.0); Red Blood Count 3.36 10^6/uL (3.63-4.92); Red Cell Distribution Width 12.4 % (12-17); Total Bilirubin 0.4 mg/dL (0.2-1.0); Total Protein 5.5 g/dL (6.4-8.9); White Blood Count 7.8 10^3/uL (3.8-11.8); eGFR CKD-EPI 127.7 (>60)
[2023-08-21 06:52] LABS: Vitamin D Total 25(OH) 21.1 ng/mL (20-50)
[2023-08-21] MEDS: Lactated Ringers 1000 ml BAG 1,000 ML IV SCH (12:39)
[2023-08-23] MEDS: Sucralfate 1 gm SUSP 1 GM/10 ML UDC PO SCH (13:06)
[2023-08-24 09:41] VITALS: BP 98/55
[2023-08-26 08:33] LABS: Vitamin E 8.1 mg/L (5.5 - 17.0)
== END 2023-08-24 15:24 | disposition home or self-care (01) | DRG 241 ==
LOC: SSU → OBSVTOIN 15:43 → INTOOBSV 15:43
PROVIDERS: ADMIT Surgery; ATTEND Surgery

== ENCOUNTER 2024-03-17 05:14 | Inpatient (IN) ==
[2024-03-17] MEDS: Lactated Ringers 1000 ml BAG 1,000 ML IV ONE (05:39)
[2024-03-17 06:06] LABS: ABS Lymphocytes 1.8 10^3/uL (1.0-4.8); ABS Monocytes 0.6 10^3/uL (0.0-0.9); ABS Neutrophils 8.1 10^3/uL (1.5-7.6); Eosinophil % 0.4 %; Hemoglobin 13.2 g/dL (11.5-14.3); Mean Corpuscular Volume 97.1 fL (80-97); Mean Platelet Volume 10.6 fL (7.5-11.2); Platelet Count 181 10^3/uL (150-450); Red Blood Count 4.02 10^6/uL (3.63-4.92); White Blood Count 10.6 10^3/uL (3.8-11.8)
[2024-03-17] MEDS ORDERED: Ondansetron 4 mg VIAL 2 MG/ML 2 ml VIAL IV PRN (07:03)
[2024-03-17] MEDS ORDERED: Metoclopramide 5 MG/ML VIAL (10 mg) IV PRN (07:03)
[2024-03-17] MEDS ORDERED: Naloxone 0.4 mg VIAL 0.4 mg/ml 1 ml VIAL IV PUSH PRN (07:03)
[2024-03-17] MEDS ORDERED: Acetaminophen IV 1 GM/100ML 1,000 MG/100 ML BAG IV PRN (07:03)
[2024-03-17] MEDS ORDERED: Morphine PF AMP (0.5MG/ML) 5 MG/10 ML AMP ONE (07:30)
[2024-03-17] MEDS: Lactated Ringers 1000 ml BAG 1,000 ML IV SCH (07:30)
[2024-03-17] MEDS ORDERED: Oxytocin 10 UNITS/ML 1 ML VIAL ONE (07:31)
[2024-03-17] MEDS ORDERED: Ondansetron 4 mg VIAL 2 MG/ML 2 ml VIAL ONE (07:31)
[2024-03-17] MEDS ORDERED: Dexamethasone IV 4 MG/ML VIAL 1 ml VIAL ONE (07:31)
[2024-03-17] MEDS: ceFOXitin 2 GM IVPREMIX 2 GM/50 ML BAG IVPB ONE (07:39)
[2024-03-17] MEDS: Buffered Lidocaine 1% SYRIN 1 ml INTRADERM ONE (07:39)
[2024-03-17] MEDS: Sodium Citrate/Citric Acid LIQ 15 ML UDC PO ONE (07:39)
[2024-03-17] MEDS ORDERED: fentaNYL 100 mcg/2 ml 50 MCG/ML VIAL ONE ×2 (08:44→08:53)
[2024-03-17] MEDS ORDERED: Glycerin ADULT 2.4 gm SUPP PR PRN (09:26)
[2024-03-17] MEDS ORDERED: Lactated Ringers 1000 ml BAG 1,000 ML IV SCH (10:00)
[2024-03-17 10:39] LABS: Urine Benzodiazepine Screen None Detected (None Detect); Urine Cannabinoids Screen None Detected (None Detect); Urine Opiates Screen None Detected (None Detect)
[2024-03-17 10:56] LABS: Urine Appearance Clear; Urine Bilirubin Negative (Negative); Urine Blood Negative (Negative); Urine Color Light-Yellow; Urine Glucose Negative (Negative); Urine Ketones Negative (Negative); Urine Nitrite Negative (Negative); Urine Protein Negative (Negative); Urine Specific Gravity 1.011 (1.002-1.030); Urine Urobilinogen Negative (Negative); Urine pH 7.5 (5.0-8.0)
[2024-03-17] MEDS: Oxytocin in LR 20,000 MILLI.UNIT/1,000 ML BAG IV SCH (11:00)
[2024-03-18 06:38] LABS: ABS Basophils 0.1 10^3/uL (0.0-0.1); ABS Lymphocytes 1.9 10^3/uL (1.0-4.8); ABS Monocytes 0.8 10^3/uL (0.0-0.9); ABS Neutrophils 8.6 10^3/uL (1.5-7.6); Eosinophil % 0.2 %; Hematocrit 28.3 % (35-45); Hemoglobin 9.6 g/dL (11.5-14.3); Lymphocyte % 16.6 %; Mean Corpuscular Hemoglobin 32.9 pg (27-33); Mean Corpuscular Hgb Conc 34.1 g/dL (31-36); Mean Corpuscular Volume 96.6 fL (80-97); Platelet Count 135 10^3/uL (150-450); Red Blood Count 2.92 10^6/uL (3.63-4.92); Red Cell Distribution Width 13.1 % (12-17); White Blood Count 11.4 10^3/uL (3.8-11.8)
[2024-03-20 09:22] VITALS: BP 91/55
== END 2024-03-20 13:59 | disposition home or self-care (01) | DRG 540 ==
LOC: MCHOB 05:14
PROVIDERS: ADMIT Obstetrics & Gynecology; ATTEND Obstetrics & Gynecology